=== PATIENT | male | born 1990 | race Two or more races ===

== ENCOUNTER 2023-03-16 21:32 | Inpatient (IN) | payer OTHER ==
[2023-03-16 22:05] VITALS: BMI 18.2
[2023-03-16] MEDS ORDERED: BENZOCAINE/MENTHOL (CHLORASEPTIC ) LOZENGE MM PRN (23:06)
[2023-03-16] MEDS ORDERED: ACETAMINOPHEN 325 MG TABLET (FP) PO PRN (23:06)
[2023-03-16] MEDS ORDERED: guaiFENesin 600 MG TABLET.ER (FP) PO PRN (23:06)
[2023-03-16] MEDS ORDERED: MAGNESIUM HYDROX 2400MG/30ML ORAL SUSPENSION 30 ML CUP PO PRN (23:06)
[2023-03-16] MEDS ORDERED: IBUPROFEN 600 MG TABLET (FP) PO PRN (23:06)
[2023-03-16] MEDS ORDERED: NALOXONE HCL (KLOXXADO) 8 MG SPRAY NS PRN (23:06)
[2023-03-16] MEDS ORDERED: IBUPROFEN 400 MG TABLET (FP) PO PRN (23:06)
[2023-03-16] MEDS ORDERED: NALOXONE HCL 0.4 MG/ML VIAL IM PRN (23:06)
[2023-03-16] MEDS ORDERED: DOCUSATE SODIUM 100 MG CAPSULE (FP) PO PRN (23:06)
[2023-03-16] MEDS ORDERED: NICOTINE POLACRILEX 2 MG GUM BUC PRN (23:06)
[2023-03-16] MEDS ORDERED: POLYETHYLENE GLYCOL (HEALTHYLAX) 3350 17 GM PACKET PO PRN (23:06)
[2023-03-16] MEDS ORDERED: LOPERAMIDE HCL 2 MG CAPSULE PO PRN (23:06)
[2023-03-16] MEDS ORDERED: P-EPHED 60MG/TRIPROLIDI 2.5MG TABLET PO PRN (23:06)
[2023-03-16] MEDS ORDERED: BENZONATATE 200 MG CAPSULE PO PRN (23:06)
[2023-03-16] MEDS ORDERED: MAG HYDROX/AL HYDROX/SIMETH 30 ML UNIT-DOSE CUP PO PRN (23:06)
[2023-03-17 03:00] VITALS: RESP 18
[2023-03-17] MEDS: MELATONIN 5 MG TABLETS PO SCH ×3 (03:01→21:53)
[2023-03-17] MEDS ORDERED: methaDONE HCL 10 MG TABLET PO SCH (08:15)
[2023-03-17] MEDS ORDERED: PRENATAL VITAMINS W/ FOLIC ACID TABLET (FP) PO SCH (10:00)
[2023-03-17] MEDS ORDERED: DICYCLOMINE HCL 10 MG CAPSULE PO PRN (12:12)
[2023-03-17] MEDS ORDERED: BISMUTH SUBSALICYLATE 262 MG/15 ML BTL PO PRN (12:12)
[2023-03-17] MEDS ORDERED: AMMONIUM LACTATE 12% LOTION 225 GM BOTTLE TP PRN (13:09)
[2023-03-17] MEDS ORDERED: methaDONE HCL 40 MG DISPERSABLE TABLET PO SCH (13:09)
[2023-03-17 13:58] LABS: POTASSIUM 3.7 mmol/L (3.5-5.1)
[2023-03-17 14:02] LABS: CALCIUM 8.1 mg/dL (8.5-10.1)
[2023-03-17 14:03] LABS: ALBUMIN 1.8 g/dl (3.4-5.0); BLOOD UREA NITROGEN 10.6 mg/dL (7-18)
[2023-03-17 14:03] LABS: URINE APPEARANCE CLEAR; URINE BILIRUBIN NEGATIVE (NEGATIVE); URINE COLOR YELLOW; URINE GLUCOSE (UA) NEGATIVE (NEGATIVE); URINE KETONE NEGATIVE (NEGATIVE); URINE LEUK ESTERASE NEGATIVE (NEGATIVE); URINE NITRITE NEGATIVE (NEGATIVE); URINE PROTEIN NEGATIVE (NEGATIVE)
[2023-03-17 14:06] LABS: CREATININE 0.5 mg/dL (0.55-1.3)
[2023-03-17 14:07] LABS: BILIRUBIN,TOTAL 0.2 mg/dL (0.2-1); TOT PROT 6.4 g/dl (6.4-8.2)
[2023-03-17 14:18] LABS: HEMATOCRIT 19.4 % (35.4-49); MCHC 31.9 g/dl (32.0-35.9); MEAN CELL VOLUME 72.2 fl (80-96); MEAN PLT VOLUME 6.3 fl (7.5-11.1); PLATELET COUNT 506 10^3/uL (134-434); RBC 2.69 M/mm3 (4.00-5.60); RDW 24.7 % (11.9-15.9); WHITE BLOOD COUNT 7.9 K/mm3 (4.0-10.0)
[2023-03-17 14:26] LABS: HEMOGLOBIN 6.2 GM/dL (11.7-16.9)
[2023-03-17 15:35] VITALS: BP 155/82; PULSE 78; TEMP 97.8
[2023-03-17] MEDS: THIAMINE HCL 100 MG TABLET (FP) PO SCH ×2 (21:29→21:53)
== END 2023-03-18 03:00 | disposition short-term general hospital (02) | DRG 772 ==
LOC: YASAS 21:32 → Y3W 03-17 02:24
PROVIDERS: ADMIT Allergy & Immunology; ATTEND Psychiatry & Neurology Pain Medicine
PROC: HZ42ZZZ Group Counseling for Substance Abuse Treatment, Cognitive-Behavioral (ICD-10-PCS; principal; 2023-03-17)
DX: F11.120 Opioid abuse with intoxication, uncomplicated (principal); F14.20 Cocaine dependence, uncomplicated; F12.10 Cannabis abuse, uncomplicated; F17.210 Nicotine dependence, cigarettes, uncomplicated; D64.9 Anemia, unspecified; B18.2 Chronic viral hepatitis C; F19.94 Other psychoactive substance use, unspecified with psychoactive substance-induced mood disorder; R63.4 Abnormal weight loss; Z68.1 Body mass index [BMI] 19.9 or less, adult; Z86.59 Personal history of other mental and behavioral disorders; Z91.011 Allergy to milk products
CPT/HCPCS: 36415; 80053; 81003; 85027; 86780; 87635; 93005; 93010

== ENCOUNTER 2023-03-17 16:15 | Observation (INO) | payer OTHER ==
[2023-03-17 17:51] VITALS: BMI 25.0
[2023-03-17] MEDS ORDERED: ACETAMINOPHEN 1000 MG/100 ML BAG IVPB ONE (18:10)
[2023-03-17] MEDS ORDERED: ACETAMINOPHEN INJECTION 100 ML IVPB ONE (18:38)
[2023-03-17 18:46] LABS: BASO % 0.4 % (0-2.0); EOS % 0.2 % (0-4.5); HEMATOCRIT 22.1 % (35.4-49); LYMPH % 10.2 % (8-40); MCH 22.3 pg (25.7-33.7); MCHC 31.4 g/dl (32.0-35.9); MEAN CELL VOLUME 71.1 fl (80-96); MEAN PLT VOLUME 6.1 fl (7.5-11.1); NEUT % 81.2 % (42.8-82.8); PLATELET COUNT 565 10^3/uL (134-434); RBC 3.11 M/mm3 (4.00-5.60); RDW 24.3 % (11.9-15.9); WHITE BLOOD COUNT 9.6 K/mm3 (4.0-10.0)
[2023-03-17 18:50] LABS: HEMOGLOBIN 6.9 GM/dL (11.7-16.9)
[2023-03-17 18:55] LABS: INR 1.34 (0.83-1.09); PROTHROMBIN TIME (PATIENT) 15.5 SEC (9.7-13.0)
[2023-03-17 18:59] LABS: ACTIVATED PTT 33.8 SECONDS (25.2-36.5)
[2023-03-17 19:09] LABS: POTASSIUM 5.2 mmol/L (3.5-5.1)
[2023-03-17 19:12] LABS: CALCIUM 7.9 mg/dL (8.5-10.1)
[2023-03-17 19:13] LABS: ALBUMIN 2.1 g/dl (3.4-5.0); BLOOD UREA NITROGEN 8.5 mg/dL (7-18); MAGNESIUM 2.1 mg/dL (1.8-2.4)
[2023-03-17 19:16] LABS: CREATININE 0.5 mg/dL (0.55-1.3)
[2023-03-17 19:17] LABS: BILIRUBIN,TOTAL 0.3 mg/dL (0.2-1)
[2023-03-17 19:18] LABS: TOT PROT 7.5 g/dl (6.4-8.2)
[2023-03-17] MEDS ORDERED: morphine CARPU-JECT 4 MG/1 ML DISP.SYRIN IVPUSH ONE (20:28)
[2023-03-17] MEDS ORDERED: morphine SULFATE 4 MG/ML VIAL ONE (20:31)
[2023-03-17 23:27] VITALS: RESP 20
[2023-03-18] MEDS ORDERED: LORazepam 1 MG TABLET PO PRN (02:01)
[2023-03-18] MEDS ORDERED: ACETAMINOPHEN 1000 MG/100 ML BAG IVPB PRN (02:02)
[2023-03-18] MEDS ORDERED: ACETAMINOPHEN INJECTION 100 ML IVPB ONE (02:35)
[2023-03-18 03:06] VITALS: BP 148/78; PULSE 78; TEMP 98
[2023-03-18 04:56] LABS: RETICULOCYTES 0.47 % (0.5-1.5)
[2023-03-18] MEDS ORDERED: LORazepam 1 MG TABLET PO SCH (05:00)
[2023-03-18] MEDS ORDERED: LORazepam 1 MG TABLET ONE (05:23)
[2023-03-18] MEDS ORDERED: NICOTINE 21 MG/24 HOURS TOPICAL PATCH TD SCH (10:00)
[2023-03-18] MEDS ORDERED: FOLIC ACID 1 MG TABLET (FP) PO SCH (10:00)
[2023-03-18] MEDS ORDERED: THIAMINE HCL 200 MG/2 ML VIAL IVPB SCH (10:00)
[2023-03-19] MEDS ORDERED: LORazepam 1 MG TABLET PO SCH (05:00)
[2023-03-20] MEDS ORDERED: LORazepam 0.5 MG TABLET PO PRN
[2023-03-20] MEDS ORDERED: LORazepam 0.5 MG TABLET PO SCH (05:00)
[2023-03-21] MEDS ORDERED: LORazepam 0.5 MG TABLET PO ONE (05:00)
== END 2023-03-18 05:00 | disposition left against medical advice (07) ==
LOC: JER 16:15 → JERBED 03-18 01:03
PROVIDERS: ADMIT Internal Medicine; ATTEND Nurse Practitioner Acute Care
PROC: 3E033NZ Introduction of Analgesics, Hypnotics, Sedatives into Peripheral Vein, Percutaneous Approach (ICD-10-PCS; principal; 2023-03-18)
DX: D64.9 Anemia, unspecified (principal); K21.9 Gastro-esophageal reflux disease without esophagitis; D64.89 Other specified anemias; K92.9 Disease of digestive system, unspecified; F19.99 Other psychoactive substance use, unspecified with unspecified psychoactive substance-induced disorder; F17.200 Nicotine dependence, unspecified, uncomplicated; Z91.011 Allergy to milk products
CPT/HCPCS: 36415; 36430; 74177-TC; 80053; 82272; 82607; 82728; 82746; 83540; 83550; 83690; 83735; 85025; 85045; 85610; 85730; 86850; 86900; 86901; 86922; 93005; 93010; 96374; 96375; 96376; 99285-25; G0378; J0131; P9058; Q9967

== ENCOUNTER 2023-03-18 07:29 | Emergency (ER) | payer OTHER ==
[2023-03-18 09:15] VITALS: TEMP 98; BMI 17.7
[2023-03-18 09:52] LABS: BASO % 0.1 % (0-2.0); EOS % 0.1 % (0-4.5); HEMATOCRIT 23.3 % (35.4-49); HEMOGLOBIN 7.5 GM/dL (11.7-16.9); LYMPH % 11.3 % (8-40); MCHC 32.4 g/dl (32.0-35.9); MEAN CELL VOLUME 71.1 fl (80-96); NEUT % 81.5 % (42.8-82.8); PLATELET COUNT 523 10^3/uL (134-434); RBC 3.28 M/mm3 (4.00-5.60); RDW 23.9 % (11.9-15.9); WHITE BLOOD COUNT 9.9 K/mm3 (4.0-10.0)
[2023-03-18 10:01] LABS: POTASSIUM 4.3 mmol/L (3.5-5.1)
[2023-03-18 10:04] LABS: BLOOD UREA NITROGEN 7.7 mg/dL (7-18); CALCIUM 8.1 mg/dL (8.5-10.1)
[2023-03-18 10:07] LABS: CREATININE 0.3 mg/dL (0.55-1.3)
[2023-03-18 10:09] LABS: BILIRUBIN,TOTAL 0.5 mg/dL (0.2-1); TOT PROT 7.1 g/dl (6.4-8.2)
[2023-03-18 14:03] VITALS: BP 157/93; PULSE 95; RESP 16
== END 2023-03-18 14:05 | disposition home or self-care (01) ==
LOC: JER 07:29
DX: R10.9 Unspecified abdominal pain (principal)
CPT/HCPCS: 36415; 80053; 82728; 82977; 83540; 83550; 83605; 83690; 85025; 99283-25

== ENCOUNTER 2023-03-18 18:08 | Inpatient (IN) | payer OTHER ==
[2023-03-18] MEDS ORDERED: FAMOTIDINE 20 MG/50 ML IVPB 20 MG/50 ML MG IVPB ONE (21:37)
[2023-03-18] MEDS: FAMOTIDINE 20 MG/50 ML IVPB 20 MG/50 ML MG IVPB ONE (21:42)
[2023-03-18] MEDS ORDERED: MELATONIN 5 MG TABLETS ONE (23:07)
[2023-03-18] MEDS ORDERED: chlordiazePOXIDE HCL 25 MG CAPSULE PO PRN (23:07)
[2023-03-18] MEDS: MELATONIN 5 MG TABLETS PO ONE (23:09)
[2023-03-18] MEDS: chlordiazePOXIDE HCL 25 MG CAPSULE PO SCH (23:48)
[2023-03-19] MEDS: ACETAMINOPHEN 1000 MG/100 ML BAG IVPB PRN (04:55)
[2023-03-19] MEDS: chlordiazePOXIDE HCL 25 MG CAPSULE PO SCH (04:56)
[2023-03-19] MEDS ORDERED: chlordiazePOXIDE HCL 25 MG CAPSULE PO SCH (05:00)
[2023-03-19 09:20] LABS: BASO % 0.3 % (0-2.0); EOS % 0.1 % (0-4.5); HEMATOCRIT 24.9 % (35.4-49); HEMOGLOBIN 7.9 GM/dL (11.7-16.9); LYMPH % 14.5 % (8-40); MCH 22.8 pg (25.7-33.7); MCHC 31.7 g/dl (32.0-35.9); MEAN CELL VOLUME 71.9 fl (80-96); MEAN PLT VOLUME 6.4 fl (7.5-11.1); MONO % 8.2 % (3.8-10.2); NEUT % 76.9 % (42.8-82.8); PLATELET COUNT 546 10^3/uL (134-434); RBC 3.46 M/mm3 (4.00-5.60); RDW 23.9 % (11.9-15.9); WHITE BLOOD COUNT 10.2 K/mm3 (4.0-10.0)
[2023-03-19] MEDS ORDERED: methaDONE HCL 10 MG TABLET (FOR DETOX USE ONLY) PO ONE (09:36)
[2023-03-19 09:42] LABS: POTASSIUM 4.5 mmol/L (3.5-5.1)
[2023-03-19] MEDS ORDERED: methaDONE HCL 10 MG TABLET (FOR DETOX USE ONLY) PO SCH (10:00)
[2023-03-19 10:12] LABS: CALCIUM 8.2 mg/dL (8.5-10.1)
[2023-03-19 10:13] LABS: ALBUMIN 2.1 g/dl (3.4-5.0)
[2023-03-19 10:16] LABS: BILIRUBIN,TOTAL 0.7 mg/dL (0.2-1); CREATININE 0.4 mg/dL (0.55-1.3)
[2023-03-19 10:17] LABS: BLOOD UREA NITROGEN 9.3 mg/dL (7-18)
[2023-03-19 10:18] LABS: MAGNESIUM 2.2 mg/dL (1.8-2.4); TOT PROT 7.5 g/dl (6.4-8.2)
[2023-03-19] MEDS: NICOTINE 21 MG/24 HOURS TOPICAL PATCH TD SCH (10:26)
[2023-03-19] MEDS: IRON SUCROSE INJECTION 200 MG in SODIUM CHLORIDE 100 ML IVPB ONE (15:18)
[2023-03-19] MEDS: BISACODYL 5 MG TABLET.DR (FP) PO ONE (15:20)
[2023-03-19] MEDS: PEG 3350/NA SULF BICARB CL/KCL 4000 ML SOLN.RECON PO ONE (18:07)
[2023-03-20] MEDS ORDERED: chlordiazePOXIDE HCL 10 MG CAPSULE PO PRN
[2023-03-20] MEDS: chlordiazePOXIDE HCL 25 MG CAPSULE PO SCH (04:16)
[2023-03-20] MEDS ORDERED: chlordiazePOXIDE HCL 10 MG CAPSULE PO SCH (05:00)
[2023-03-20] MEDS ORDERED: chlordiazePOXIDE HCL 25 MG CAPSULE PO PRN (08:24)
[2023-03-20] MEDS ORDERED: PANTOPRAZOLE 40 MG TABLET PO SCH (10:00)
[2023-03-20] MEDS: IRON SUCROSE INJECTION 200 MG in SODIUM CHLORIDE 90 ML IVPB ONE (10:05)
[2023-03-20 10:51] LABS: BASO % 0.3 % (0-2.0); EOS % 0.5 % (0-4.5); HEMATOCRIT 23.7 % (35.4-49); HEMOGLOBIN 7.3 GM/dL (11.7-16.9); LYMPH % 20.2 % (8-40); MCH 21.9 pg (25.7-33.7); MCHC 30.7 g/dl (32.0-35.9); MEAN CELL VOLUME 71.4 fl (80-96); MEAN PLT VOLUME 6.3 fl (7.5-11.1); MONO % 11.1 % (3.8-10.2); NEUT % 67.9 % (42.8-82.8); PLATELET COUNT 538 10^3/uL (134-434); RBC 3.32 M/mm3 (4.00-5.60); RDW 23.9 % (11.9-15.9); WHITE BLOOD COUNT 7.4 K/mm3 (4.0-10.0)
[2023-03-20 10:56] LABS: INR 1.5 (0.83-1.09); PROTHROMBIN TIME (PATIENT) 17.3 SEC (9.7-13.0)
[2023-03-20 11:10] LABS: POTASSIUM 4.3 mmol/L (3.5-5.1)
[2023-03-20 11:15] LABS: BLOOD UREA NITROGEN 8.2 mg/dL (7-18); CALCIUM 8.7 mg/dL (8.5-10.1)
[2023-03-20 11:19] LABS: CREATININE 0.4 mg/dL (0.55-1.3)
[2023-03-20 11:20] LABS: BILIRUBIN,TOTAL 0.2 mg/dL (0.2-1)
[2023-03-20 11:23] LABS: TOT PROT 7.3 g/dl (6.4-8.2)
[2023-03-20] MEDS: AMINO ACIDS 4.25%/D5W 1,000 ML IV SCH (16:52)
[2023-03-20 18:27] LABS: HIV INTERPRETATION NEGATIVE (NEGATIVE)
[2023-03-20] MEDS: PANTOPRAZOLE 40 MG TABLET PO SCH (22:04)
[2023-03-21] MEDS ORDERED: chlordiazePOXIDE HCL 10 MG CAPSULE PO PRN
[2023-03-21] MEDS ORDERED: chlordiazePOXIDE HCL 10 MG CAPSULE PO SCH ×2 (05:00)
[2023-03-21 09:41] LABS: BASO % 0.5 % (0-2.0); EOS % 1.5 % (0-4.5); HEMATOCRIT 18.4 % (35.4-49); LYMPH % 24.5 % (8-40); MCH 22.6 pg (25.7-33.7); MCHC 31.8 g/dl (32.0-35.9); MEAN CELL VOLUME 71.2 fl (80-96); MEAN PLT VOLUME 6.4 fl (7.5-11.1); MONO % 9.8 % (3.8-10.2); NEUT % 63.7 % (42.8-82.8); PLATELET COUNT 395 10^3/uL (134-434); RBC 2.59 M/mm3 (4.00-5.60); RDW 24.2 % (11.9-15.9)
[2023-03-21 09:56] LABS: HEMOGLOBIN 5.9 GM/dL (11.7-16.9)
[2023-03-21 10:05] LABS: CHLORIDE 100 mmol/L (98-107); POTASSIUM 4.1 mmol/L (3.5-5.1); SODIUM 135 mmol/L (136-145)
[2023-03-21 10:13] LABS: ANION GAP 7 mmol/L (4-13); BLOOD UREA NITROGEN 9.4 mg/dL (7-18); CALCIUM 8.1 mg/dL (8.5-10.1); CO2 28 mmol/L (21-32)
[2023-03-21 10:14] LABS: ALBUMIN 1.8 g/dl (3.4-5.0)
[2023-03-21 10:16] LABS: SGPT/ALT 41 U/L (13-61)
[2023-03-21 10:17] LABS: CREATININE 0.4 mg/dL (0.55-1.3); SGOT/AST 46 U/L (15-37)
[2023-03-21 10:18] LABS: ALK PHOS 121 U/L (45-117); BILIRUBIN,TOTAL 0.3 mg/dL (0.2-1); TOT PROT 6.7 g/dl (6.4-8.2)
[2023-03-21 10:26] LABS: GLUCOSE,RANDOM 47 mg/dL (74-106)
[2023-03-21] MEDS: POTASSIUM CHLORIDE 10 MEQ in DEXTROSE 5%-NORMAL SALINE 1,000 ML IVPB SCH (10:35)
[2023-03-21] MEDS: DEXTROSE 50%-WATER 25 GM/50 ML DISP.SYRIN IVPUSH ONE (10:45)
[2023-03-21 10:47] LABS: ANISOCYTOSIS 2+; MACROCYTOSIS 0; OVALOCYTE 1+
[2023-03-21] MEDS ORDERED: AMINO ACIDS 4.25%/D5W 1,000 ML IV SCH (15:00)
[2023-03-21 21:53] LABS: HEMATOCRIT 23.1 % (35.4-49); HEMOGLOBIN 7.4 GM/dL (11.7-16.9); MCH 23.8 pg (25.7-33.7); MCHC 32.1 g/dl (32.0-35.9); MEAN CELL VOLUME 74.1 fl (80-96); MEAN PLT VOLUME 6.6 fl (7.5-11.1); PLATELET COUNT 442 10^3/uL (134-434); RBC 3.12 M/mm3 (4.00-5.60); RDW 22.6 % (11.9-15.9); WHITE BLOOD COUNT 7.2 K/mm3 (4.0-10.0)
[2023-03-22] MEDS ORDERED: chlordiazePOXIDE HCL 10 MG CAPSULE PO SCH (05:00)
[2023-03-22] MEDS ORDERED: chlordiazePOXIDE HCL 10 MG CAPSULE PO ONE (05:00)
[2023-03-22] MEDS: SODIUM CHLORIDE 1,000 ML with POTASSIUM CHLORIDE 10 MEQ IV SCH (05:39)
[2023-03-22] MEDS: IRON SUCROSE INJECTION 200 MG in SODIUM CHLORIDE 90 ML IVPB ONE (09:01)
[2023-03-22 09:28] LABS: HEMATOCRIT 25.8 % (35.4-49); HEMOGLOBIN 8.3 GM/dL (11.7-16.9); MCH 23.7 pg (25.7-33.7); MCHC 32.3 g/dl (32.0-35.9); MEAN CELL VOLUME 73.4 fl (80-96); MEAN PLT VOLUME 6.4 fl (7.5-11.1); PLATELET COUNT 454 10^3/uL (134-434); RBC 3.52 M/mm3 (4.00-5.60); RDW 22.3 % (11.9-15.9); WHITE BLOOD COUNT 4.4 K/mm3 (4.0-10.0)
[2023-03-22 09:52] LABS: POTASSIUM 4.2 mmol/L (3.5-5.1)
[2023-03-22 10:17] LABS: CALCIUM 8.2 mg/dL (8.5-10.1)
[2023-03-22 10:18] LABS: MAGNESIUM 2.2 mg/dL (1.8-2.4)
[2023-03-22 10:20] LABS: CREATININE 0.5 mg/dL (0.55-1.3); PHOSPHOROUS 3.5 mg/dL (2.5-4.9)
[2023-03-22 10:21] LABS: BILIRUBIN,TOTAL 0.5 mg/dL (0.2-1)
[2023-03-23] MEDS ORDERED: chlordiazePOXIDE HCL 10 MG CAPSULE PO ONE (05:00)
[2023-03-23 11:16] LABS: BASO % 0.5 % (0-2.0); EOS % 1.3 % (0-4.5); HEMATOCRIT 26.3 % (35.4-49); HEMOGLOBIN 8.5 GM/dL (11.7-16.9); LYMPH % 22.7 % (8-40); MCH 23.9 pg (25.7-33.7); MCHC 32.4 g/dl (32.0-35.9); MEAN CELL VOLUME 73.8 fl (80-96); MEAN PLT VOLUME 6.3 fl (7.5-11.1); MONO % 10.9 % (3.8-10.2); NEUT % 64.6 % (42.8-82.8); PLATELET COUNT 525 10^3/uL (134-434); RBC 3.56 M/mm3 (4.00-5.60); RDW 22.9 % (11.9-15.9); WHITE BLOOD COUNT 5.2 K/mm3 (4.0-10.0)
[2023-03-23 11:39] LABS: CHLORIDE 103 mmol/L (98-107); POTASSIUM 4.4 mmol/L (3.5-5.1); SODIUM 137 mmol/L (136-145)
[2023-03-23 11:48] LABS: ANION GAP 6 mmol/L (4-13); CALCIUM 8.1 mg/dL (8.5-10.1); CO2 28 mmol/L (21-32); CREATININE 0.6 mg/dL (0.55-1.3); SGOT/AST 63 U/L (15-37)
[2023-03-23 11:50] LABS: BILIRUBIN,TOTAL 0.2 mg/dL (0.2-1); SGPT/ALT 64 U/L (13-61); TOT PROT 6.8 g/dl (6.4-8.2)
[2023-03-23 11:51] LABS: ALK PHOS 123 U/L (45-117)
[2023-03-23 12:02] LABS: GLUCOSE,RANDOM 49 mg/dL (74-106)
[2023-03-23] MEDS ORDERED: DEXTROSE 50%-WATER 25 GM/50 ML DISP.SYRIN IVPUSH PRN (15:55)
[2023-03-23] MEDS: POTASSIUM CHLORIDE 10 MEQ in SODIUM CHLORIDE 1,000 ML IV SCH (17:06)
[2023-03-24] MEDS: DEXTROSE 5%-0.45% SALINE 1,000 ML IV SCH (08:03)
[2023-03-24 09:32] LABS: BASO % 0.5 % (0-2.0); EOS % 1.1 % (0-4.5); HEMATOCRIT 25.2 % (35.4-49); HEMOGLOBIN 8.1 GM/dL (11.7-16.9); LYMPH % 31.8 % (8-40); MCH 23.8 pg (25.7-33.7); MCHC 32.2 g/dl (32.0-35.9); MEAN PLT VOLUME 6.2 fl (7.5-11.1); NEUT % 54.6 % (42.8-82.8); PLATELET COUNT 411 10^3/uL (134-434); RDW 23.2 % (11.9-15.9); WHITE BLOOD COUNT 4.3 K/mm3 (4.0-10.0)
[2023-03-24 10:05] LABS: POTASSIUM 4.5 mmol/L (3.5-5.1)
[2023-03-24 10:23] LABS: CREATININE 0.5 mg/dL (0.55-1.3)
[2023-03-24 10:26] LABS: ALBUMIN 1.9 g/dl (3.4-5.0); BILIRUBIN,TOTAL 0.3 mg/dL (0.2-1); BLOOD UREA NITROGEN 3.5 mg/dL (7-18); CALCIUM 7.9 mg/dL (8.5-10.1); TOT PROT 6.5 g/dl (6.4-8.2)
[2023-03-24] MEDS: AMOXICILLIN 500 MG CAPSULE (FP) PO SCH (21:44)
[2023-03-24] MEDS: CLARITHROMYCIN 500 MG TABLET (UD) PO SCH (21:44)
[2023-03-25 10:02] LABS: HEMATOCRIT 26.5 % (35.4-49); HEMOGLOBIN 8.5 GM/dL (11.7-16.9); MCH 24.1 pg (25.7-33.7); MCHC 32.2 g/dl (32.0-35.9); MEAN PLT VOLUME 6.4 fl (7.5-11.1); PLATELET COUNT 432 10^3/uL (134-434); RBC 3.53 M/mm3 (4.00-5.60); RDW 23.6 % (11.9-15.9); WHITE BLOOD COUNT 5.2 K/mm3 (4.0-10.0)
[2023-03-25 10:20] LABS: POTASSIUM 4.9 mmol/L (3.5-5.1)
[2023-03-25 10:27] LABS: CREATININE 0.6 mg/dL (0.55-1.3)
[2023-03-25 10:29] LABS: BILIRUBIN,TOTAL 0.2 mg/dL (0.2-1); BLOOD UREA NITROGEN 6.4 mg/dL (7-18); CALCIUM 8.1 mg/dL (8.5-10.1)
[2023-03-25 10:38] LABS: TOT PROT 6.6 g/dl (6.4-8.2)
[2023-03-25 12:27] VITALS: BMI 17.9
[2023-03-26 09:58] LABS: HEMATOCRIT 28.4 % (35.4-49); HEMOGLOBIN 9.1 GM/dL (11.7-16.9); MCHC 31.9 g/dl (32.0-35.9); MEAN PLT VOLUME 6.4 fl (7.5-11.1); PLATELET COUNT 428 10^3/uL (134-434); RBC 3.79 M/mm3 (4.00-5.60); RDW 24.7 % (11.9-15.9); WHITE BLOOD COUNT 4.6 K/mm3 (4.0-10.0)
[2023-03-26 10:21] LABS: POTASSIUM 4.9 mmol/L (3.5-5.1)
[2023-03-26 10:28] LABS: ALBUMIN 2.1 g/dl (3.4-5.0); BLOOD UREA NITROGEN 11.4 mg/dL (7-18); CALCIUM 8.4 mg/dL (8.5-10.1); MAGNESIUM 2.1 mg/dL (1.8-2.4)
[2023-03-26 10:31] LABS: CREATININE 0.6 mg/dL (0.55-1.3); PHOSPHOROUS 3.8 mg/dL (2.5-4.9)
[2023-03-26 10:33] LABS: BILIRUBIN,TOTAL 0.2 mg/dL (0.2-1); TOT PROT 7.2 g/dl (6.4-8.2)
[2023-03-26 10:34] LABS: IRON SERUM 28 ug/dL (50-175); TOTAL IRON BINDING CAPACITY 295 ug/dL (250-450)
[2023-03-27 11:27] VITALS: RESP 18
[2023-03-27 12:17] LABS: BASO % 0.4 % (0-2.0); EOS % 1.3 % (0-4.5); HEMATOCRIT 29.7 % (35.4-49); HEMOGLOBIN 9.4 GM/dL (11.7-16.9); LYMPH % 29.1 % (8-40); MCH 23.9 pg (25.7-33.7); MCHC 31.5 g/dl (32.0-35.9); MEAN PLT VOLUME 6.3 fl (7.5-11.1); MONO % 9.2 % (3.8-10.2); PLATELET COUNT 389 10^3/uL (134-434); RBC 3.91 M/mm3 (4.00-5.60); RDW 24.8 % (11.9-15.9); WHITE BLOOD COUNT 6.2 K/mm3 (4.0-10.0)
[2023-03-27 12:31] LABS: POTASSIUM 5.5 mmol/L (3.5-5.1)
[2023-03-27 12:33] LABS: ANISOCYTOSIS 2+; CALCIUM 8.3 mg/dL (8.5-10.1); MACROCYTOSIS 0
[2023-03-27 12:34] LABS: ALBUMIN 2.3 g/dl (3.4-5.0); BLOOD UREA NITROGEN 13.4 mg/dL (7-18)
[2023-03-27 12:37] LABS: CREATININE 0.7 mg/dL (0.55-1.3)
[2023-03-27 12:39] LABS: BILIRUBIN,TOTAL 0.2 mg/dL (0.2-1); TOT PROT 7.2 g/dl (6.4-8.2)
[2023-03-27] MEDS: SODIUM ZIRCONIUM CYCLOSILICATE (LOKELMA) 5 GM PACKET PO ONE (13:40)
[2023-03-27 18:09] LABS: IG A QN SERUM. 600 mg/dL (90-386)
[2023-03-28 10:22] LABS: HEMATOCRIT 27.8 % (35.4-49); HEMOGLOBIN 8.8 GM/dL (11.7-16.9); MCH 24.2 pg (25.7-33.7); MCHC 31.5 g/dl (32.0-35.9); MEAN CELL VOLUME 76.6 fl (80-96); MEAN PLT VOLUME 6.5 fl (7.5-11.1); PLATELET COUNT 286 10^3/uL (134-434); RBC 3.63 M/mm3 (4.00-5.60); RDW 24.8 % (11.9-15.9); WHITE BLOOD COUNT 5.3 K/mm3 (4.0-10.0)
[2023-03-28 10:43] LABS: ALBUMIN 2.1 g/dl (3.4-5.0); CALCIUM 8.5 mg/dL (8.5-10.1)
[2023-03-28 10:44] LABS: BLOOD UREA NITROGEN 11.4 mg/dL (7-18); MAGNESIUM 1.9 mg/dL (1.8-2.4)
[2023-03-28 10:46] LABS: PHOSPHOROUS 3.4 mg/dL (2.5-4.9)
[2023-03-28 10:47] LABS: BILIRUBIN,TOTAL 0.2 mg/dL (0.2-1)
[2023-03-28 10:48] LABS: CREATININE 0.6 mg/dL (0.55-1.3); TOT PROT 6.9 g/dl (6.4-8.2)
[2023-03-28 11:42] LABS: VENOUS BASE EXCESS 4.8 mmol/L (-2-2); VENOUS O2 SATURATION 48.5 % (70-80); VENOUS PCO2 49.7 mmHg (38-52); VENOUS PH 7.403 (7.310-7.410)
[2023-03-28] MEDS: QUEtiapine FUMARATE 25 MG TABLET PO SCH (21:22)
[2023-03-29 04:39] VITALS: TEMP 98.1
[2023-03-29 10:15] VITALS: BP 123/64; PULSE 69
== END 2023-03-29 13:02 | disposition home or self-care (01) | DRG 241 ==
LOC: JER 18:08 → JERBED 20:55 → J6S 03-19 01:06 → OBSVTOIN 03-19 09:59
PROVIDERS: ADMIT Internal Medicine; ATTEND Internal Medicine
PROC: 0DB68ZX Excision of Stomach, Via Natural or Artificial Opening Endoscopic, Diagnostic (ICD-10-PCS; 2023-03-20)
PROC: 0DJD8ZZ Inspection of Lower Intestinal Tract, Via Natural or Artificial Opening Endoscopic (ICD-10-PCS; 2023-03-20)
PROC: 30233N1 Transfusion of Nonautologous Red Blood Cells into Peripheral Vein, Percutaneous Approach (ICD-10-PCS; 2023-03-21)
PROC: 0DB78ZX Excision of Stomach, Pylorus, Via Natural or Artificial Opening Endoscopic, Diagnostic (ICD-10-PCS; principal; 2023-03-27 09:30)
DX: K25.0 Acute gastric ulcer with hemorrhage (principal); E43 Unspecified severe protein-calorie malnutrition; R18.8 Other ascites; F11.20 Opioid dependence, uncomplicated; F14.20 Cocaine dependence, uncomplicated; K21.9 Gastro-esophageal reflux disease without esophagitis; D50.9 Iron deficiency anemia, unspecified; B96.81 Helicobacter pylori [H. pylori] as the cause of diseases classified elsewhere; R00.0 Tachycardia, unspecified; K31.4 Gastric diverticulum; K74.60 Unspecified cirrhosis of liver; D62 Acute posthemorrhagic anemia; M62.50 Muscle wasting and atrophy, not elsewhere classified, unspecified site; Z68.1 Body mass index [BMI] 19.9 or less, adult; D75.839 Thrombocytosis, unspecified; K20.90 Esophagitis, unspecified without bleeding; K31.89 Other diseases of stomach and duodenum; F31.9 Bipolar disorder, unspecified; R64 Cachexia; F19.94 Other psychoactive substance use, unspecified with psychoactive substance-induced mood disorder; E87.6 Hypokalemia; E16.2 Hypoglycemia, unspecified; K80.20 Calculus of gallbladder without cholecystitis without obstruction; E87.3 Alkalosis; R93.2 Abnormal findings on diagnostic imaging of liver and biliary tract; K31.84 Gastroparesis
CPT/HCPCS: 0241U-QW; 36415; 36430; 74178-TC; 74181-TC; 74240-TC-FY; 76705-TC; 80048; 80053; 82105; 82533; 82728; 82784; 82803; 82962; 82977; 83525; 83540; 83550; 83605; 83690; 83735; 84100; 84155; 84165; 85025; 85027; 85045; 85610; 86140; 86334; 86704; 86803; 86850; 86900; 86901; 86922; 87040; 87340; 87389; 87517; 87522; 88305-TC; 88341-TC; 93005; 93010; 93306-TC; 97116-GP; 97162-GP; 99285-25; G0378; J0131; J1756; P9038; P9058

== ENCOUNTER 2023-05-04 22:49 | Observation (INO) | payer OTHER ==
[2023-05-04 23:02] VITALS: BMI 18.2
[2023-05-05] MEDS ORDERED: morphine SULFATE 4 MG/ML VIAL ONE (00:18)
[2023-05-05] MEDS: LACTATED RINGERS SOLUTION 1,000 ML/1,000 ML INFUS.BAG IV SCH (00:30)
[2023-05-05] MEDS: morphine CARPU-JECT 4 MG/1 ML DISP.SYRIN IVPUSH ONE (00:30)
[2023-05-05 00:35] LABS: BASO % 0.2 % (0-2.0); HEMATOCRIT 32.5 % (35.4-49); HEMOGLOBIN 10.7 GM/dL (11.7-16.9); LYMPH % 15.3 % (8-40); MCH 24.7 pg (25.7-33.7); MCHC 32.8 g/dl (32.0-35.9); MEAN CELL VOLUME 75.5 fl (80-96); MEAN PLT VOLUME 6.8 fl (7.5-11.1); MONO % 11.8 % (3.8-10.2); NEUT % 71.7 % (42.8-82.8); PLATELET COUNT 408 10^3/uL (134-434); RBC 4.31 M/mm3 (4.00-5.60); RDW 20.4 % (11.9-15.9); WHITE BLOOD COUNT 9.3 K/mm3 (4.0-10.0)
[2023-05-05 00:38] LABS: INR 1.29 (0.83-1.09); PROTHROMBIN TIME (PATIENT) 14.9 SEC (9.7-13.0)
[2023-05-05 00:40] LABS: ACTIVATED PTT 31.4 SECONDS (25.2-36.5)
[2023-05-05 00:44] LABS: POTASSIUM 4.3 mmol/L (3.5-5.1)
[2023-05-05 00:46] LABS: ALBUMIN 3.1 g/dl (3.4-5.0); CALCIUM 8.6 mg/dL (8.5-10.1)
[2023-05-05 00:47] LABS: BLOOD UREA NITROGEN 15.9 mg/dL (7-18)
[2023-05-05 00:49] LABS: CREATININE 0.8 mg/dL (0.55-1.3)
[2023-05-05 00:51] LABS: BILIRUBIN,TOTAL 0.4 mg/dL (0.2-1)
[2023-05-05] MEDS ORDERED: MAG HYDROX/AL HYDROX/SIMETH 30 ML UNIT-DOSE CUP ONE (03:49)
[2023-05-05] MEDS ORDERED: FAMOTIDINE 20 MG/50 ML IVPB 20 MG/50 ML MG IVPB ONE (03:50)
[2023-05-05] MEDS: MAG HYDROX/AL HYDROX/SIMETH 30 ML UNIT-DOSE CUP PO ONE (04:00)
[2023-05-05] MEDS: FAMOTIDINE 20 MG/50 ML IVPB 20 MG/50 ML MG IVPB ONE (04:01)
[2023-05-05] MEDS ORDERED: DOCUSATE SODIUM 100 MG CAPSULE (FP) PO PRN (06:29)
[2023-05-05 07:21] LABS: POTASSIUM 3.8 mmol/L (3.5-5.1)
[2023-05-05 07:29] LABS: ALBUMIN 2.7 g/dl (3.4-5.0); CALCIUM 8.2 mg/dL (8.5-10.1); MAGNESIUM 2.3 mg/dL (1.8-2.4)
[2023-05-05 07:32] LABS: CREATININE 0.6 mg/dL (0.55-1.3)
[2023-05-05 07:33] LABS: BASO % 0.2 % (0-2.0); EOS % 1.1 % (0-4.5); HEMATOCRIT 29.9 % (35.4-49); HEMOGLOBIN 9.6 GM/dL (11.7-16.9); LYMPH % 30.8 % (8-40); MCH 24.2 pg (25.7-33.7); MCHC 32.2 g/dl (32.0-35.9); MEAN CELL VOLUME 75.3 fl (80-96); MEAN PLT VOLUME 6.8 fl (7.5-11.1); MONO % 13.4 % (3.8-10.2); NEUT % 54.5 % (42.8-82.8); PHOSPHOROUS 2.8 mg/dL (2.5-4.9); PLATELET COUNT 325 10^3/uL (134-434); RBC 3.97 M/mm3 (4.00-5.60); RDW 20.4 % (11.9-15.9); RETICULOCYTES 0.32 % (0.5-1.5); WHITE BLOOD COUNT 6.9 K/mm3 (4.0-10.0)
[2023-05-05 07:34] LABS: BILIRUBIN,TOTAL 0.4 mg/dL (0.2-1)
[2023-05-05] MEDS: IRON SUCROSE INJECTION 200 MG in SODIUM CHLORIDE 100 ML IVPB SCH (13:27)
[2023-05-05] MEDS: FERROUS SO4 325 MG TABLET (FP) PO SCH (14:07)
[2023-05-05] MEDS: PANTOPRAZOLE 40 MG TABLET PO SCH (14:07)
[2023-05-05] MEDS: MULTIVITAMINS THER W-MINERALS COMBO TABLET (FP) PO SCH (14:07)
[2023-05-05] MEDS: POLYETHYLENE GLYCOL (HEALTHYLAX) 3350 17 GM PACKET PO SCH (14:40)
[2023-05-05] MEDS: PANTOPRAZOLE SODIUM 40 MG VIAL IVPUSH SCH (21:37)
[2023-05-05] MEDS: ACETAMINOPHEN 1000 MG/100 ML BAG IVPB ONE (21:52)
[2023-05-06] MEDS ORDERED: methaDONE HCL 10 MG TABLET PO SCH (06:00)
[2023-05-06 08:00] LABS: BASO % 0.4 % (0-2.0); EOS % 2.9 % (0-4.5); HEMATOCRIT 29.3 % (35.4-49); HEMOGLOBIN 9.2 GM/dL (11.7-16.9); LYMPH % 42.2 % (8-40); MCH 24.5 pg (25.7-33.7); MCHC 31.4 g/dl (32.0-35.9); MEAN CELL VOLUME 77.9 fl (80-96); MEAN PLT VOLUME 7.1 fl (7.5-11.1); MONO % 7.3 % (3.8-10.2); NEUT % 47.2 % (42.8-82.8); RBC 3.76 M/mm3 (4.00-5.60); RDW 20.4 % (11.9-15.9)
[2023-05-06 08:10] LABS: WHITE BLOOD COUNT 5.2 K/mm3 (4.0-10.0)
[2023-05-06 08:11] LABS: PLATELET COUNT 256 10^3/uL (134-434)
[2023-05-06 08:31] LABS: POTASSIUM 4.1 mmol/L (3.5-5.1)
[2023-05-06 08:35] LABS: BLOOD UREA NITROGEN 7.2 mg/dL (7-18); CALCIUM 8.7 mg/dL (8.5-10.1)
[2023-05-06 08:36] LABS: CREATININE 0.5 mg/dL (0.55-1.3)
[2023-05-06] MEDS: methaDONE HCL 10 MG TABLET PO ONE (08:48)
[2023-05-06] MEDS: IRON SUCROSE INJECTION 200 MG in SODIUM CHLORIDE 100 ML IVPB ONE (08:56)
[2023-05-06 09:19] LABS: PLATELET ESTIMATE ADEQUATE
[2023-05-06] MEDS: ENOXAPARIN NA (PORCINE) 40 MG/0.4 ML DISP.SYRIN SQ SCH (10:46)
[2023-05-06 15:08] VITALS: PULSE 67; RESP 18
[2023-05-06 23:02] VITALS: BP 172/86; TEMP 98.8
== END 2023-05-06 21:30 | disposition short-term general hospital (02) ==
LOC: JER 22:49 → JERBED 05-05 04:22 → J7W 05-05 14:24
PROVIDERS: ADMIT Internal Medicine; ATTEND Student in an Organized Health Care Education/Training Program
PROC: 0DD38ZX Extraction of Lower Esophagus, Via Natural or Artificial Opening Endoscopic, Diagnostic (ICD-10-PCS; 2023-05-05)
PROC: 0DB98ZX Excision of Duodenum, Via Natural or Artificial Opening Endoscopic, Diagnostic (ICD-10-PCS; 2023-05-05)
PROC: 3E033NZ Introduction of Analgesics, Hypnotics, Sedatives into Peripheral Vein, Percutaneous Approach (ICD-10-PCS; 2023-05-05)
PROC: 3E033GC Introduction of Other Therapeutic Substance into Peripheral Vein, Percutaneous Approach (ICD-10-PCS; 2023-05-05)
PROC: 3E0337Z Introduction of Electrolytic and Water Balance Substance into Peripheral Vein, Percutaneous Approach (ICD-10-PCS; 2023-05-05)
PROC: 0DB68ZX Excision of Stomach, Via Natural or Artificial Opening Endoscopic, Diagnostic (ICD-10-PCS; principal; 2023-05-05 12:30)
DX: B37.81 Candidal esophagitis (principal); F11.90 Opioid use, unspecified, uncomplicated; K76.0 Fatty (change of) liver, not elsewhere classified; F31.9 Bipolar disorder, unspecified; D89.2 Hypergammaglobulinemia, unspecified; K31.4 Gastric diverticulum; B19.20 Unspecified viral hepatitis C without hepatic coma; R63.0 Anorexia; D64.9 Anemia, unspecified; K59.00 Constipation, unspecified; Z86.19 Personal history of other infectious and parasitic diseases; Z91.011 Allergy to milk products; F17.210 Nicotine dependence, cigarettes, uncomplicated
CPT/HCPCS: 0241U-QW; 36415; 74177-TC; 76705-TC; 80048; 80053; 80305; 82271; 82728; 83540; 83550; 83605; 83690; 83735; 84100; 84466; 85025; 85045; 85610; 85730; 86850; 86900; 86901; 88104; 88305-TC; 88312-TC; 88341-TC; 88342-TC; 93005; 93010; 96361; 96365; 96367; 96375; 99285-25; G0378; J0131; J1756